=== PATIENT | female | born 2000 | race Asian ===

== ENCOUNTER 2024-03-05 21:25 | Emergency (ER) | payer OTHER ==
[2024-03-05] MEDS ORDERED: Acetaminophen 500 MG TAB ONE (21:43)
== END 2024-03-05 23:21 | disposition home or self-care (01) ==
LOC: BURERS 21:25
DX: S16.1XXA Strain of muscle, fascia and tendon at neck level, initial encounter (principal); S10.91XA Abrasion of unspecified part of neck, initial encounter; S00.81XA Abrasion of other part of head, initial encounter; V48.5XXA Car driver injured in noncollision transport accident in traffic accident, initial encounter; Y93.89 Activity, other specified; Y92.410 Unspecified street and highway as the place of occurrence of the external cause
CPT/HCPCS: 70450; 71045; 72125; G0390